=== PATIENT | female | born 2005 | race African-American/Black ===

== ENCOUNTER 2023-09-02 16:08 | Outpatient (CLI) | payer OTHER | END 2023-09-02 23:59 | disposition critical access hospital (66) | LOC: EMS 16:08 | DX: R10.31 Right lower quadrant pain (principal); R10.32 Left lower quadrant pain; R10.814 Left lower quadrant abdominal tenderness; R10.813 Right lower quadrant abdominal tenderness; R42 Dizziness and giddiness; R11.2 Nausea with vomiting, unspecified; R19.7 Diarrhea, unspecified | CPT/HCPCS: A0425; A0429 ==

== ENCOUNTER 2023-09-02 16:33 | Observation (INO) | payer OTHER ==
[2023-09-02] MEDS ORDERED: MORPHINE 2 MG/ML CARPUJECT IVP STA (17:17)
[2023-09-02] MEDS ORDERED: SODIUM CHLORIDE 0.9% 1,000 ML IV STA (17:17)
[2023-09-02] MEDS ORDERED: ONDANSETRON 4 MG/2 ML VIAL IVP STA (17:17)
[2023-09-02 17:29] LABS: BASOPHILS % (AUTO) 0.2 %; EOSINOPHILS % (AUTO) 0.2 %; HCT - HEMATOCRIT 39.9 % (37.0-47.0); HGB - HEMOGLOBIN 12.6 g/dL (12.0-16.0); LYMPHOCYTES # (AUTO) 1.2 10^3/uL (1.5-3.5); MEAN CORPUSCULAR HEMOGLOBIN 25.9 pg (27.0-31.0); MEAN CORPUSCULAR HGB CONC 31.6 g/dL (32.0-36.0); MEAN CORPUSCULAR VOLUME 81.9 fL (81.0-99.0); MEAN PLATELET VOLUME 9.4 fL (7.9-10.8); MONOCYTES # (AUTO) 0.6 10^3/uL (0.0-1.0); MONOCYTES % (AUTO) 3.9 %; NEUTROPHILS # (AUTO) 13.4 10^3/uL (1.5-6.6); NEUTROPHILS % (AUTO) 87.3 %; PLT - PLATELET COUNT 351 10^3/uL (130-450); RED BLOOD COUNT 4.87 10^6/uL (4.20-5.40); RED CELL DISTRIBUTION WIDTH 15.3 % (12.0-15.0); WHITE BLOOD COUNT 15.3 x10^3/uL (4.8-10.8)
[2023-09-02 17:41] LABS: ALBUMIN 4.4 g/dL (3.2-5.5); ALBUMIN/GLOBULIN RATIO 1.3 (1.0-2.2); CALCIUM 9.4 mg/dL (8.5-10.3); CREATININE 0.7 mg/dL (0.6-1.3); POTASSIUM 3.5 mmol/L (3.5-4.5); TOTAL PROTEIN 7.8 g/dL (6.4-8.9)
[2023-09-02 18:33] LABS: HCG,QUALITATIVE BLOOD NEGATIVE
[2023-09-02 19:35] LABS: BILIRUBIN,URINE NEGATIVE (NEGATIVE); GLUCOSE, URINE (UA) NEGATIVE (NEGATIVE); KETONES,URINE (UA) >=80 mg/dL (NEGATIVE); LEUKOCYTE ESTERASE, URINE NEGATIVE (NEGATIVE); NITRITE,URINE NEGATIVE (NEGATIVE); OCCULT BLOOD,URINE SMALL (NEGATIVE); PROTEIN,URINE NEGATIVE (NEGATIVE); UROBILINOGEN,URINE 0.2 (NORMAL) E.U./dL (NORMAL)
[2023-09-02 19:39] LABS: CLARITY,URINE CLEAR (CLEAR)
[2023-09-02] MEDS ORDERED: iohexoL-300 100 ML VIAL IVP ONE (19:39)
[2023-09-02 19:52] LABS: WBC,URINE 0-3 /HPF (0-5)
[2023-09-02 19:53] LABS: BACTERIA,URINE Rare /HPF (None Seen); SQUAMOUS EPITHELIAL CELL,UR RARE Squamous (<= Few)
[2023-09-02] MEDS ORDERED: CEFEPIME 2 GM in SODIUM CHLORIDE 0.9% MINIBAG 100 ML IV STA (19:54)
[2023-09-02] MEDS ORDERED: metroNIDAZOLE 500 MG/100 ML 500 MG/100 ML BAG IV ONE (19:54)
--- NOTE | 2023-09-02 20:01 | ED Physician Documentation ---
PD HPI ABD PAIN - Stated complaint Stated Complaint: ABD PX - Chief complaint Chief Complaint: Abd Pain - History obtained from History obtained from: Patient - History of Present Illness Timing - onset: Today, Last night Timing - duration: Days (1) Timing - details: Gradual onset Pain level max: 7 Pain level now: 7 Quality: Aching, Pain Location: Periumbilical, RLQ Radiation: No: Chest, , Lower back, Left flank, Left shoulder, Right flank, Right shoulder, Upper back Improved by: Laying still Worsened by: Moving, Palpation Associated symptoms: Nausea, Vomiting. No: Fever, Hematemesis, Diarrhea, Constipation, Hematochezia, Dysuria, Hematuria Similar symptoms before: Has not had sx before Recently seen: Not recently seen - Additional information Additional information: 18-year-old female with nausea vomiting and lower abdominal pain. This started after eating pizza last night. Has gradually worsened throughout the day. Unable to keep anything down. Denies any possibility of . Not on any medications other than Nexplanon. 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 : None HEENT: None, Dental implants Psych: None Musculoskeletal: None Derm: None - Past Surgical History Past Surgical History: No - Present Medications Home Medications: Ambulatory Orders Medication Instructions Recorded Confirmed No Known Home Medications 09/02/23 09/02/23 - Allergies Allergies/Adverse Reactions: Allergies Allergy/AdvReac Type Severity Reaction Status Date / Time Penicillins Allergy Rash Verified 09/02/23 16:47 - Social History Does the pt smoke?: No Smoking Status: Never smoker Does the pt drink ETOH?: Yes Does the pt have substance abuse?: No - Immunizations Immunizations are current?: Yes - POLST Patient has POLST: No PD ED PE NORMAL - Vitals Vital signs reviewed: Yes - General General: Alert and oriented X 3, No acute distress - HEENT HEENT: PERRL, Moist mucous membranes - Neck Neck: Supple, no meningeal sign - Cardiac Cardiac: RRR, Strong equal pulses - Respiratory Respiratory: No respiratory distress, Clear bilaterally - Abdomen Abdomen: Soft, Non distended, Other (Diffusely tender palpation across her lower abdomen,) - Back Back: No CVA TTP, No spinal TTP - Derm Derm: Warm and dry, No rash - Extremities Extremities: No edema, No calf tenderness / cord - Neuro Neuro: Alert and oriented X 3 - Psych Psych: Normal mood, Normal affect Results - Vitals Vitals: Vital Signs - 24 hr 09/02/23 09/02/23 09/02/23 16:35 19:00 20:37 Temperature 37.1 C Heart Rate 92 87 76 Respiratory 18 16 16 Rate Blood Pressure 139/71 H 130/72 127/80 O2 Saturation 100 100 100 If not protocol 2 : Oxygen Flow, liters/minute 09/02/23 21:00 Temperature Heart Rate 88 Respiratory 16 Rate Blood Pressure 118/69 O2 Saturation 100 If not protocol : Oxygen Flow, liters/minute Oxygen O2 Source Room air - Labs Labs: Laboratory Tests 09/02/23 09/02/23 09/02/23 17:21 17:21 17:21 WBC 15.3 H RBC 4.87 Hgb 12.6 Hct 39.9 MCV 81.9 MCH 25.9 L MCHC 31.6 L RDW 15.3 H Plt Count 351 MPV 9.4 Neut # (Auto) 13.4 H Lymph # (Auto) 1.2 L [place] # (Auto) 0.6 Eos # (Auto) 0.0 Baso # (Auto) 0.0 Absolute Nucleated RBC 0.00 Nucleated RBC % 0.0 Sodium 135 Potassium 3.5 Chloride 103 Carbon Dioxide 23 Anion Gap 9.0 BUN 10 Creatinine 0.7 Estimated GFR (MDRD) 129 Glucose 107 H Calcium 9.4 Total Bilirubin 1.0 AST 16 ALT 12 Alkaline Phosphatase 67 Total Protein 7.8 Albumin 4.4 Globulin 3.4 Albumin/Globulin Ratio 1.3 Lipase 17 Serum HCG, Qual NEGATIVE Urine Color Urine Clarity Urine pH Ur Specific [place] Urine Protein Urine Glucose (UA) Urine Ketones Urine Occult Blood Urine Nitrite Urine Bilirubin Urine Urobilinogen Ur Leukocyte Esterase Urine RBC Urine WBC Ur Squamous Epith Cells Urine Bacteria Ur Microscopic Review Urine Culture Comments 09/02/23 19:28 WBC RBC Hgb Hct MCV MCH MCHC RDW Plt Count MPV Neut # (Auto) Lymph # (Auto) [place] # (Auto) Eos # (Auto) Baso # (Auto) Absolute Nucleated RBC Nucleated RBC % Sodium Potassium Chloride Carbon Dioxide Anion Gap BUN Creatinine Estimated GFR (MDRD) Glucose Calcium Total Bilirubin AST ALT Alkaline Phosphatase Total Protein Albumin Globulin Albumin/Globulin Ratio Lipase Serum HCG, Qual Urine Color YELLOW Urine Clarity CLEAR Urine pH 7.0 Ur Specific [place] 1.020 Urine Protein NEGATIVE Urine Glucose (UA) NEGATIVE Urine Ketones >=80 H Urine Occult Blood SMALL H Urine Nitrite NEGATIVE Urine Bilirubin NEGATIVE Urine Urobilinogen 0.2 (NORMAL) Ur Leukocyte Esterase NEGATIVE Urine RBC 6-10 H Urine WBC 0-3 Ur Squamous Epith Cells RARE Squamous Urine Bacteria Rare Ur Microscopic Review INDICATED Urine Culture Comments NOT INDICATED - Rads (name of study) CT abdomen pelvis Relevant Findings:: Final report received, See rad report PD Medical Decision Making - ED course Complexity details: reviewed results, re-evaluated patient, considered differential, d/w patient, d/w sales consultant residential manager ED course: Patient with acute appendicitis. She was started on Flagyl and cefepime. Given morphine for pain. Started on IV fluids. Consulted surgery, Dr. Lion, he will take the patient to the operating room for removal of the appendix. This document was made in part using voice recognition software. While efforts are made to proofread this document, sound alike and grammatical errors may occur. Departure - Departure Disposition: ED Transfer to [facility] Clinical Impression: Appendicitis Qualifiers: Appendicitis type: acute appendicitis Acute appendicitis type: with localized peritonitis Appendicitis gangrene presence: unspecified whether gangrene present Appendicitis perforation presence: unspecified whether perforation present Appendicitis abscess presence: unspecified whether abscess present Qualified Code(s): K35.30 - Acute appendicitis with localized peritonitis, without perforation or gangrene Condition: Stable Discharge Date/Time: 09/02/23 21:20
--- NOTE | 2023-09-02 20:18 | CT Report ---
PROCEDURE: ABDOMEN/PELVIS W INDICATIONS: Lower CONTRAST: 100mL Omni 300 TECHNIQUE: After the administration of IV contrast, 5 mm thick sections acquired from the diaphragms to the symp hysis. 5 mm thick coronal and sagittal reformats were acquired. For radiation dose reduction, the f ollowing was used: automated exposure control, adjustment of mA and/or kV according to patient size. COMPARISON: None. FINDINGS: Image quality: Excellent. Lung bases and heart: Unremarkable. Small hiatal hernia. Liver: No solid mass. Gallbladder and biliary tree: Normal gallbladder. No gallstones. No biliary dilation. Spleen: No splenomegaly. Pancreas: No pancreatic ductal dilation. Adrenals: No adrenal nodule. Kidneys and ureters: No hydronephrosis. No renal cystic lesion which requires follow up. No solid mas s. Bowel and peritoneum: The appendix is retrocecal in location. Appendix is distended and filled with f luid measuring up to 15 mm in diameter. There is increased appendiceal mucosal enhancement and mild p eriappendiceal stranding consistent with acute appendicitis. No bowel distension. No pathologic free fluid. No colonic diverticula. Lymph nodes: There is a 1.1 cm aortocaval lymph node (series 2 image 37; series 5 image 26). Vessels: No infrarenal aortic aneurysm. PELVIS Reproductive organs: Uterus is grossly normal. Ovaries are unremarkable. There is a vlgnb-au-gohprygi amount of free fluid in the cul-de-sac demonstrates subtle enhancement suggesting developing abscess . Bladder: Bladder wall is mildly thickened with subtle stranding suggesting cystitis.. Bones: No aggressive osseous abnormality. Other: No significant ventral or inguinal hernia. IMPRESSION: 1. Acute appendicitis. No findings to suggest appendiceal perforation. There is a ezvlr-kt-sfcmmnwd a mount of free fluid in the cul-de-sac, demonstrating subtle peripheral enhancement. Cannot rule out d eveloping abscess. 2. Mild bladder wall thickening. Recommend correlation with urinalysis for cystitis. 3. There is a mildly enlarged aortocaval lymph node, most likely reactive. The result was discussed with Dr. Shirley. Reviewed by: Lisa Robb MD on 09/02/2023 8:16 PM PDT Approved by: Lisa Robb MD on 09/02/2023 8:16 PM PDT Station ID: [id number]
[2023-09-02] MEDS ORDERED: SODIUM CHLORIDE FLUSH 0.9% 10 ML SYRINGE IVP PRN ×2 (20:26→22:19)
--- NOTE | 2023-09-02 20:31 | HISTORY & PHYSICAL EXAMINATION ---
HPI - Admitted From Admitted from: ED - History Obtained From History obtained from: Patient - History of Present Illness HPI Comment/Other: 18 year old female with 24 hours of abdominal pain that started with lower abdominal cramping associated with nausea, vomiting and anorexia. Last meal was this morning. The pain did not resolve with Tylenol and Ibuprofen and moved to the RLQ. Moving and coughing makes it worse. Never had similar pain in the past. 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 Family lives off [address]. - POLST Patient has POLST: No - Family History Family History Comment/Other: Negative family history except father had acute appendicitis Meds/Allgy - Home Medications Home Medications: Ambulatory Orders Medication Instructions Recorded Confirmed No Known Home Medications 09/02/23 09/02/23 - Allergies Allergies/Adverse Reactions: Allergies Allergy/AdvReac Type Severity Reaction Status Date / Time Penicillins Allergy Rash Verified 09/02/23 16:47 Review of Systems - Other Findings Other Findings: Nausea, vomiting, anorexia, RLQ pain Exam - Vital Signs Reviewed Vital Signs: Yes Vital Signs: Vital Signs x48h Temp Pulse Resp BP Pulse Ox O2 Flow Rate 09/02/23 19:00 87 16 130/72 100 2 09/02/23 16:35 98.8 F 92 18 139/71 H 100 - Physical Exam General Appearance: positive: Alert, Mild distress Eyes Bilateral: positive: Normal inspection, PERRL ENT: positive: ENT inspection nml, Pharynx nml Neck: positive: Nml inspection, Thyroid nml Respiratory: positive: Chest non-tender, No respiratory distress, Breath sounds nml Cardiovascular: positive: Regular rate & rhythm, No murmur Peripheral Pulses: positive: 2+ Abdomen: positive: Other (RLQ tenderness without rebound. No distension.) Back: positive: Nml inspection Skin: positive: Color nml, Warm Extremities: positive: Full ROM, Nml appearance Neurologic/Psychiatric: positive: Oriented x3 Results - Lab Results Fish Bones: 09/02/23 17:21 09/02/23 17:21 Other Lab Results: Lab Results x24hrs 09/02/23 09/02/23 09/02/23 Range/Units 19:28 17:21 17:21 WBC (4.8-10.8) x10^3/uL RBC (4.20-5.40) 10^6/uL Hgb (12.0-16.0) g/dL Hct (37.0-47.0) % MCV (81.0-99.0) fL MCH (27.0-31.0) pg MCHC (32.0-36.0) g/dL RDW (12.0-15.0) % Plt Count (130-450) 10^3/uL MPV (7.9-10.8) fL Neut # (Auto) (1.5-6.6) 10^3/uL Lymph # (Auto) (1.5-3.5) 10^3/uL [place] # (Auto) (0.0-1.0) 10^3/uL Eos # (Auto) (0.0-0.7) 10^3/uL Baso # (Auto) (0.0-0.1) 10^3/uL Absolute Nucleated RBC x10^3/uL Nucleated RBC % /100WBC Sodium 135 (135-145) mmol/L Potassium 3.5 (3.5-4.5) mmol/L Chloride 103 (101-111) mmol/L Carbon Dioxide 23 (21-32) mmol/L Anion Gap 9.0 (6-13) BUN 10 (6-20) mg/dL Creatinine 0.7 (0.6-1.3) mg/dL Estimated GFR (MDRD) 129 (>89) Glucose 107 H (74-104) mg/dL Calcium 9.4 (8.5-10.3) mg/dL Total Bilirubin 1.0 (0.2-1.0) mg/dL AST 16 (10-42) IU/L ALT 12 (10-60) IU/L Alkaline Phosphatase 67 (42-121) IU/L Total Protein 7.8 (6.4-8.9) g/dL Albumin 4.4 (3.2-5.5) g/dL Globulin 3.4 (2.1-4.2) g/dL Albumin/Globulin Ratio 1.3 (1.0-2.2) Lipase 17 (11-82) U/L Serum HCG, Qual NEGATIVE Urine Color YELLOW Urine Clarity CLEAR (CLEAR) Urine pH 7.0 (5.0-7.5) PH Ur Specific [place] 1.020 (1.002-1.030) Urine Protein NEGATIVE (NEGATIVE) mg/dL Urine Glucose (UA) NEGATIVE (NEGATIVE) mg/dL Urine Ketones >=80 H (NEGATIVE) mg/dL Urine Occult Blood SMALL H (NEGATIVE) Urine Nitrite NEGATIVE (NEGATIVE) Urine Bilirubin NEGATIVE (NEGATIVE) Urine Urobilinogen 0.2 (NORMAL) (NORMAL) E.U./dL Ur Leukocyte Esterase NEGATIVE (NEGATIVE) Urine RBC 6-10 H (0-5) /HPF Urine WBC 0-3 (0-5) /HPF Ur Squamous Epith Cells RARE Squamous (<= Few) Urine Bacteria Rare (None Seen) /HPF Ur Microscopic Review INDICATED Urine Culture Comments NOT INDICATED 09/02/23 Range/Units 17:21 WBC 15.3 H (4.8-10.8) x10^3/uL RBC 4.87 (4.20-5.40) 10^6/uL Hgb 12.6 (12.0-16.0) g/dL Hct 39.9 (37.0-47.0) % MCV 81.9 (81.0-99.0) fL MCH 25.9 L (27.0-31.0) pg MCHC 31.6 L (32.0-36.0) g/dL RDW 15.3 H (12.0-15.0) % Plt Count 351 (130-450) 10^3/uL MPV 9.4 (7.9-10.8) fL Neut # (Auto) 13.4 H (1.5-6.6) 10^3/uL Lymph # (Auto) 1.2 L (1.5-3.5) 10^3/uL [place] # (Auto) 0.6 (0.0-1.0) 10^3/uL Eos # (Auto) 0.0 (0.0-0.7) 10^3/uL Baso # (Auto) 0.0 (0.0-0.1) 10^3/uL Absolute Nucleated RBC 0.00 x10^3/uL Nucleated RBC % 0.0 /100WBC Sodium (135-145) mmol/L Potassium (3.5-4.5) mmol/L Chloride (101-111) mmol/L Carbon Dioxide (21-32) mmol/L Anion Gap (6-13) BUN (6-20) mg/dL Creatinine (0.6-1.3) mg/dL Estimated GFR (MDRD) (>89) Glucose (74-104) mg/dL Calcium (8.5-10.3) mg/dL Total Bilirubin (0.2-1.0) mg/dL AST (10-42) IU/L ALT (10-60) IU/L Alkaline Phosphatase (42-121) IU/L Total Protein (6.4-8.9) g/dL Albumin (3.2-5.5) g/dL Globulin (2.1-4.2) g/dL Albumin/Globulin Ratio (1.0-2.2) Lipase (11-82) U/L Serum HCG, Qual Urine Color Urine Clarity (CLEAR) Urine pH (5.0-7.5) PH Ur Specific [place] (1.002-1.030) Urine Protein (NEGATIVE) mg/dL Urine Glucose (UA) (NEGATIVE) mg/dL Urine Ketones (NEGATIVE) mg/dL Urine Occult Blood (NEGATIVE) Urine Nitrite (NEGATIVE) Urine Bilirubin (NEGATIVE) Urine Urobilinogen (NORMAL) E.U./dL Ur Leukocyte Esterase (NEGATIVE) Urine RBC (0-5) /HPF Urine WBC (0-5) /HPF Ur Squamous Epith Cells (<= Few) Urine Bacteria (None Seen) /HPF Ur Microscopic Review Urine Culture Comments - Diagnostic Imaging Results Diagnostic Imaging Results Comments: CT -> distended, appendix without evidence of perforation Impression/Plan - Problem List Problem List: Assessment: 1) Acute appendicitis Plan: 1) Laparoscopic appendectomy, possible open appendectomy Consent: Scottyelizabeth has been counseled for the procedure, it's indications, risks, benefits and expected outcome as well as alternative therapies. We specifically discussed risks associated with anesthesia, bleeding, infection, injury to surrounding structures which may require additional surgery, and the possible need for conversion to an open procedure. We also discussed the possible need for a blood transfusion with its risks and benefits. Rajendra understands, agrees, and consents to the proposed operative strategy and requests that we proceed with the procedure as outlined in our discussion. Carlitos Lion MD General Surgery Service
[2023-09-02] MEDS: LACTATED RINGERS 1,000 ML IV SCH (20:43)
[2023-09-02] MEDS ORDERED: ROCURONIUM 50 MG/5 ML VIAL ONE (20:49)
[2023-09-02] MEDS ORDERED: PROPOFOL 200 MG/20 ML VIAL IVP ONE (20:49)
[2023-09-02] MEDS ORDERED: MIDAZOLAM 2 MG/2 ML VIAL ONE (20:49)
[2023-09-02] MEDS ORDERED: fentaNYL 100 MCG/2 ML VIAL ONE ×2 (20:50→22:18)
--- NOTE | 2023-09-02 20:52 | ANESTHESIA ---
Pre-Anesthesia VS, & Labs - Diagnosis Acute appendicitis - Procedure Lap Appy Vital Signs: Temp Pulse Resp BP Pulse Ox O2 Flow Rate 37.1 C 76 16 127/80 100 2 09/02/23 16:35 09/02/23 20:37 09/02/23 20:37 09/02/23 20:37 09/02/23 20:37 09/02/23 19:00 Height: 5 ft 3 in Weight (kg): 85.4 kg Body Mass Index: 33.3 BMI Classification: Obese - NPO Last Food Intake: 11 am - Is Patient ?: No - Lab Results Current Lab Results: Laboratory Tests 09/02/23 17:21: Serum HCG, Qual NEGATIVE 09/02/23 17:21: Sodium 135, Potassium 3.5, Chloride 103, Carbon Dioxide 23, Anion Gap 9.0, BUN 10, Creatinine 0.7, Estimated GFR (MDRD) 129, Glucose 107 H, Calcium 9.4, Total Bilirubin 1.0, AST 16, ALT 12, Alkaline Phosphatase 67, Total Protein 7.8, Albumin 4.4, Globulin 3.4, Albumin/Globulin Ratio 1.3, Lipase 17 09/02/23 17:21: WBC 15.3 H, RBC 4.87, Hgb 12.6, Hct 39.9, MCV 81.9, MCH 25.9 L, MCHC 31.6 L, RDW 15.3 H, Plt Count 351, MPV 9.4, Neut # (Auto) 13.4 H, Lymph # (Auto) 1.2 L, [place] # (Auto) 0.6, Eos # (Auto) 0.0, Baso # (Auto) 0.0, Absolute Nucleated RBC 0.00, Nucleated RBC % 0.0 Lab results reviewed: Yes Fish Bones: 09/02/23 17:21 09/02/23 17:21 Home Medications and Allergies Home Medications: Ambulatory Orders No Known Home Medications 09/02/23 Active Medications Metronidazole (Flagyl 500 Mg/100 Ml) 500 mg in 100 mls @ 100 mls/hr IV ONCE ONE Stop: 09/02/23 20:53 Lactated Ringer's (Lr) 1,000 mls @ 125 mls/hr IV .Q8H FERMIN Last Admin: 09/02/23 20:43 Dose: 125 mls/hr Sodium Chloride (Sodium Chloride Flush 0.9% 10 Ml Syringe) 10 ml IVP 0100,0900,1700 FERMIN Sodium Chloride (Sodium Chloride Flush 0.9% 10 Ml Syringe) 10 ml IVP PRN PRN PRN Reason: NEEDED PER PROVIDER ORDERS No Known Home Medications 09/02/23 Allergies/Adverse Reactions: Allergies Allergy/AdvReac Type Severity Reaction Status Date / Time Penicillins Allergy Rash Verified 09/02/23 16:47 Anes History & Medical History - Anesthetic History Family history of Anesthesia Complications: Denies Family history of Malignant Hyperthermia: Denies - Medical History Cardiovascular: reports: None Pulmonary: reports: None Gastrointestinal: reports: GERD (occasional r/t diet) Urinary: reports: None Neuro: reports: None Musculoskeletal: reports: None Endocrine/Autoimmune: reports: None Blood Disorders: reports: None Skin: reports: None Smoking Status: Never smoker Psychosocial: reports: No issues indicated History of Cancer?: No Exam General: Alert, Oriented x3, Cooperative, No acute distress Dental: WNL Mouth Openin Fingerbreadth Neck Mobility: Normal Mallampati classification: II Thyromental Distance: 4-6 cm Mental/Cognitive Status: Alert/Oriented X3, Normal for patient Plan Anesthesia Type: General Consent for Procedure(s) Verified and Reviewed: Yes Code Status: Attempt Resuscitation ASA classification: 1-Healthy patient Is this case an emergency?: Yes
[2023-09-02] MEDS ORDERED: ATROPINE ABBOJECT 1 MG/10 ML SYRINGE IVP PRN (20:53)
[2023-09-02] MEDS ORDERED: fentaNYL 100 MCG/2 ML VIAL IVP PRN (20:53)
[2023-09-02] MEDS ORDERED: ONDANSETRON 4 MG/2 ML VIAL IVP PRN ×2 (20:53→22:19)
[2023-09-02] MEDS ORDERED: MORPHINE 2 MG/ML CARPUJECT IVP PRN (20:53)
[2023-09-02] MEDS ORDERED: NALOXONE 0.4 MG/ML VIAL IVP PRN (20:53)
[2023-09-02] MEDS ORDERED: HYDROmorphone 0.5 MG/0.5 ML SYRINGE IVP PRN (20:53)
[2023-09-02] MEDS ORDERED: LACTATED RINGERS 1,000 ML IV SCH (21:00)
[2023-09-02] MEDS ORDERED: BUPIVACAINE 0.25% PF 30 ML VIAL ONE (21:17)
[2023-09-02] MEDS ORDERED: LIDOCAINE 1%-EPI 1:100000 20 ML MDV ONE (21:17)
[2023-09-02] MEDS ORDERED: DEXAMETHASONE 4 MG/ML VIAL ONE (21:40)
[2023-09-02] MEDS ORDERED: HYDROmorphone 1 MG/ML CARPUJECT ONE (21:41)
[2023-09-02] MEDS ORDERED: LIDOCAINE 1%-EPI 1:100000 20 ML MDV SUBQ ONE (21:54)
[2023-09-02] MEDS ORDERED: BUPIVACAINE 0.25% PF 30 ML VIAL SUBQ ONE (21:54)
[2023-09-02] MEDS ORDERED: ONDANSETRON 4 MG/2 ML VIAL ONE (22:12)
[2023-09-02] MEDS ORDERED: SUGAMMADEX 200 MG/2 ML VIAL IVP ONE (22:15)
[2023-09-02] MEDS ORDERED: oxyCODONE 5 MG TABLET PO PRN (22:19)
[2023-09-02] MEDS ORDERED: KETOROLAC 30 MG/ML VIAL ONE (22:21)
[2023-09-02] MEDS ORDERED: LACTATED RINGERS 700 ML IV ONE (22:23)
--- NOTE | 2023-09-02 22:30 | OPERATIVE REPORT ---
Operative Report - Other Other Information/Narrative: PROCEDURE DATE: 09/02/23 PREOPERATIVE DIAGNOSIS: Rajendra is a 18 year old female who has clinical, CT, and laboratory findings consistent with acute appendicitis. Rajendra is being taken to the operating room for laparoscopic appendectomy, possible open appendectomy. POSTOPERATIVE DIAGNOSIS: Acute, non-ruptured appendicitis NAME OF PROCEDURE: Laparoscopic appendectomy SURGEON: Raymundo Lion MD, FACS DEPLOYMENT SPECIALIST: Wind Turbine Performance Engineer ANESTHESIA: General endotracheal. ESTIMATED BLOOD LOSS: 5 mL. DRAINS: None SPECIMEN: Appendix COMPLICATIONS None FINDINGS: An intact, inflamed appendix DESCRIPTION OF OPERATION: After consent for the procedure was obtained, the patient was brought to the operating room where in the supine position, general endotracheal anesthesia was administered. A surgical time-out was performed, indicating the patient and the procedure to be performed. The abdomen was prepped with alcohol-free chloroprep and draped in a sterile fashion. The subcutaneous tissue of each of the planned port sites was infiltrated with 1% Lidocaine with epinephrine in a 50/50 mix with 1/4 % Marcaine mixture. Pneumoperitoneum was achieved through a subumbilical incision using a Trinity cannula and an open technique. Under direct vision, a 5 mm muscle splitting, non-cutting port was placed in the right lower quadrant and an 12 mm muscle splitting, non-cutting port was placed in the left lower quadrant. Inspection revealed the above noted findings. Placing the patient in Trendelenburg position slightly rolled to the left allowed visualization of the appendix. The appendix was gently grasped with a ratcheted grasper and retracted superiorly and anteriorly. The meso-appendix was transected with a harmonic scalpel until healthy tissue was identified at the base of the appendix. The base of the appendix was stapled and transected flush with the cecum using an Endo-RHYS stapling device using gastrointestinal frantz. The appendix was then brought out through the left lower quadrant port site incision using an EndoCatch device. Reinspection of the right lower quadrant revealed no evidence of bleeding or leakage from the previous dissection site except for a small mesoappendiceal bleeder adjacent to the staple line that was controlled with the harmonic scalpel. The right lower quadrant was irrigated with warm sterile saline. The irrigant was aspirated. A search was made for sponges, packs, instruments, and needles. None were found. The sponge, pack, instrument, and needle counts were relayed to me as being correct. The left lower quadrant port site was closed with a 2-0 Vicryl under direct vision using an endo-close device. The pneumoperitoneum then was released. There was no evidence of bleeding from the laparoscopic port sleeve sites upon release of the pneumoperitoneum. The subumbilical incision was closed with 2-0 Vicryl for the linea alba. The skin of each of the port sites was closed with interrupted 4-0 Monocryl in a subcuticular fashion with Steri-Strips to reinforce the epidermis. Dressings were placed. The patient tolerated the procedure well and was brought to the recovery room with stable vital signs.
--- NOTE | 2023-09-02 22:51 | ANESTHESIA POST OP EVALUATION ---
Anesthesia Post Eval - Post Anesthesia Eval Vitals: Last Vital Signs Temp 36.1 C L 09/02/23 22:45 Pulse 90 09/02/23 22:45 Resp 22 09/02/23 22:45 BP 115/68 09/02/23 22:45 Pulse Ox 100 09/02/23 22:45 O2 Flow Rate 2 09/02/23 19:00 CV Function Including HR & BP: Stable Pain Control: Satisfactory Nausea & Vomiting: Negative Mental Status: Baseline Respiratory Status: Airway Patent Hydration Status: Satisfactory Anesthesia Complications: None
[2023-09-02] MEDS: KETOROLAC 30 MG/ML VIAL IVP SCH (23:42)
[2023-09-02] MEDS: SODIUM CHLORIDE FLUSH 0.9% 10 ML SYRINGE IVP SCH (23:43)
[2023-09-02] MEDS: ACETAMINOPHEN 325 MG TABLET PO SCH (23:43)
[2023-09-03] MEDS: SODIUM CHLORIDE FLUSH 0.9% 10 ML SYRINGE IVP SCH ×3 (00:33→09:29)
[2023-09-03 00:54] VITALS: O2SAT 100
[2023-09-03] MEDS: LACTATED RINGERS 1,000 ML IV SCH ×2 (04:13→12:05)
[2023-09-03] MEDS: ACETAMINOPHEN 325 MG TABLET PO SCH ×2 (05:37→11:32)
[2023-09-03] MEDS: KETOROLAC 30 MG/ML VIAL IVP SCH ×2 (05:37→11:31)
[2023-09-03 05:39] LABS: BASOPHILS % (AUTO) 0.2 %; HCT - HEMATOCRIT 38.3 % (37.0-47.0); LYMPHOCYTES # (AUTO) 1.1 10^3/uL (1.5-3.5); LYMPHOCYTES % (AUTO) 6.3 %; MEAN CORPUSCULAR HEMOGLOBIN 25.9 pg (27.0-31.0); MEAN CORPUSCULAR HGB CONC 31.3 g/dL (32.0-36.0); MEAN CORPUSCULAR VOLUME 82.7 fL (81.0-99.0); MEAN PLATELET VOLUME 9.4 fL (7.9-10.8); MONOCYTES # (AUTO) 0.5 10^3/uL (0.0-1.0); MONOCYTES % (AUTO) 2.7 %; NEUTROPHILS # (AUTO) 15.1 10^3/uL (1.5-6.6); NEUTROPHILS % (AUTO) 90.4 %; PLT - PLATELET COUNT 343 10^3/uL (130-450); RED BLOOD COUNT 4.63 10^6/uL (4.20-5.40); RED CELL DISTRIBUTION WIDTH 15.5 % (12.0-15.0); WHITE BLOOD COUNT 16.7 x10^3/uL (4.8-10.8)
--- NOTE | 2023-09-03 06:56 | PROVIDER PROGRESS NOTE ---
Subjective - General Admit Date: 09/02/23 Procedure Date: 09/02/23 Post Op Days: 1 Procedure Performed: Laparoscopic appendectomy - Review of Systems Wound/Incisions: positive: Healing well, Dressing dry and intact - Other Other Information/Narrative: Pain under good control with oral medication; Ambulated and urinated without difficulty; No nausea or vomiting Objective - Patient Data Vital Signs: Vital Signs x48h Temp Pulse Pulse Resp BP BP Pulse Ox 09/03/23 06:47 98.6 F 73 16 103/54 L 100 09/03/23 02:42 97.5 F L 75 16 112/67 100 09/03/23 00:47 97.9 F 81 15 109/60 100 09/02/23 23:10 09/02/23 23:00 98.1 F 99 16 102/86 H 96 09/02/23 22:57 96.8 F L 99 21 110/74 100 O2 Flow Rate 09/03/23 06:47 09/03/23 02:42 09/03/23 00:47 09/02/23 23:10 2 09/02/23 23:00 09/02/23 22:57 Weight: Weight 09/01/23 09/02/23 09/03/23 23:59 23:59 23:59 Weight (kg) 79.5 kg Intake & Output: Intake and Output Totals x24h 09/01/23 09/02/23 09/03/23 23:59 23:59 23:59 Intake Total 1100 937.5 Balance 1100 937.5 - Lab Results Lab Results: 09/03/23 05:26 09/02/23 17:21 Other Lab Results: Lab Results x24hrs 09/03/23 09/03/23 09/02/23 Range/Units 05:26 05:26 19:28 WBC 16.7 H (4.8-10.8) x10^3/uL RBC 4.63 (4.20-5.40) 10^6/uL Hgb 12.0 (12.0-16.0) g/dL Hct 38.3 (37.0-47.0) % MCV 82.7 (81.0-99.0) fL MCH 25.9 L (27.0-31.0) pg MCHC 31.3 L (32.0-36.0) g/dL RDW 15.5 H (12.0-15.0) % Plt Count 343 (130-450) 10^3/uL MPV 9.4 (7.9-10.8) fL Neut # (Auto) 15.1 H (1.5-6.6) 10^3/uL Lymph # (Auto) 1.1 L (1.5-3.5) 10^3/uL Sampson # (Auto) 0.5 (0.0-1.0) 10^3/uL Eos # (Auto) 0.0 (0.0-0.7) 10^3/uL Baso # (Auto) 0.0 (0.0-0.1) 10^3/uL Absolute Nucleated RBC 0.00 x10^3/uL Nucleated RBC % 0.0 /100WBC Sodium (135-145) mmol/L Potassium (3.5-4.5) mmol/L Chloride (101-111) mmol/L Carbon Dioxide (21-32) mmol/L Anion Gap (6-13) BUN (6-20) mg/dL Creatinine (0.6-1.3) mg/dL Estimated GFR (MDRD) (>89) Glucose (74-104) mg/dL Calcium (8.5-10.3) mg/dL Total Bilirubin (0.2-1.0) mg/dL AST (10-42) IU/L ALT (10-60) IU/L Alkaline Phosphatase (42-121) IU/L Total Protein (6.4-8.9) g/dL Albumin (3.2-5.5) g/dL Globulin (2.1-4.2) g/dL Albumin/Globulin Ratio (1.0-2.2) Amylase 40 (28-100) U/L Lipase (11-82) U/L Serum HCG, Qual Urine Color YELLOW Urine Clarity CLEAR (CLEAR) Urine pH 7.0 (5.0-7.5) PH Ur Specific [place] 1.020 (1.002-1.030) Urine Protein NEGATIVE (NEGATIVE) mg/dL Urine Glucose (UA) NEGATIVE (NEGATIVE) mg/dL Urine Ketones >=80 H (NEGATIVE) mg/dL Urine Occult Blood SMALL H (NEGATIVE) Urine Nitrite NEGATIVE (NEGATIVE) Urine Bilirubin NEGATIVE (NEGATIVE) Urine Urobilinogen 0.2 (NORMAL) (NORMAL) E.U./dL Ur Leukocyte Esterase NEGATIVE (NEGATIVE) Urine RBC 6-10 H (0-5) /HPF Urine WBC 0-3 (0-5) /HPF Ur Squamous Epith Cells RARE Squamous (<= Few) Urine Bacteria Rare (None Seen) /HPF Ur Microscopic Review INDICATED Urine Culture Comments NOT INDICATED 09/02/23 09/02/23 09/02/23 Range/Units 17:21 17:21 17:21 WBC 15.3 H (4.8-10.8) x10^3/uL RBC 4.87 (4.20-5.40) 10^6/uL Hgb 12.6 (12.0-16.0) g/dL Hct 39.9 (37.0-47.0) % MCV 81.9 (81.0-99.0) fL MCH 25.9 L (27.0-31.0) pg MCHC 31.6 L (32.0-36.0) g/dL RDW 15.3 H (12.0-15.0) % Plt Count 351 (130-450) 10^3/uL MPV 9.4 (7.9-10.8) fL Neut # (Auto) 13.4 H (1.5-6.6) 10^3/uL Lymph # (Auto) 1.2 L (1.5-3.5) 10^3/uL Sampson # (Auto) 0.6 (0.0-1.0) 10^3/uL Eos # (Auto) 0.0 (0.0-0.7) 10^3/uL Baso # (Auto) 0.0 (0.0-0.1) 10^3/uL Absolute Nucleated RBC 0.00 x10^3/uL Nucleated RBC % 0.0 /100WBC Sodium 135 (135-145) mmol/L Potassium 3.5 (3.5-4.5) mmol/L Chloride 103 (101-111) mmol/L Carbon Dioxide 23 (21-32) mmol/L Anion Gap 9.0 (6-13) BUN 10 (6-20) mg/dL Creatinine 0.7 (0.6-1.3) mg/dL Estimated GFR (MDRD) 129 (>89) Glucose 107 H (74-104) mg/dL Calcium 9.4 (8.5-10.3) mg/dL Total Bilirubin 1.0 (0.2-1.0) mg/dL AST 16 (10-42) IU/L ALT 12 (10-60) IU/L Alkaline Phosphatase 67 (42-121) IU/L Total Protein 7.8 (6.4-8.9) g/dL Albumin 4.4 (3.2-5.5) g/dL Globulin 3.4 (2.1-4.2) g/dL Albumin/Globulin Ratio 1.3 (1.0-2.2) Amylase (28-100) U/L Lipase 17 (11-82) U/L Serum HCG, Qual NEGATIVE Urine Color Urine Clarity (CLEAR) Urine pH (5.0-7.5) PH Ur Specific [place] (1.002-1.030) Urine Protein (NEGATIVE) mg/dL Urine Glucose (UA) (NEGATIVE) mg/dL Urine Ketones (NEGATIVE) mg/dL Urine Occult Blood (NEGATIVE) Urine Nitrite (NEGATIVE) Urine Bilirubin (NEGATIVE) Urine Urobilinogen (NORMAL) E.U./dL Ur Leukocyte Esterase (NEGATIVE) Urine RBC (0-5) /HPF Urine WBC (0-5) /HPF Ur Squamous Epith Cells (<= Few) Urine Bacteria (None Seen) /HPF Ur Microscopic Review Urine Culture Comments - Current Medications Current Medications: Current Medications Generic Name Dose Route Start Last Admin Trade Name Alpeshq PRN Reason Stop Dose Admin Acetaminophen 650 mg 09/03/23 00:00 09/03/23 05:37 Acetaminophen 325 Mg Tablet PO 650 mg Q6HR FERMIN Administration Lactated Ringer's 1,000 mls @ 125 mls/hr 09/02/23 21:00 09/03/23 04:13 Lr IV 125 mls/hr .Q8H FERMIN Administration Ketorolac Tromethamine 30 mg 09/02/23 23:00 09/03/23 05:37 Ketorolac 30 Mg/Ml Vial IVP 09/03/23 23:01 30 mg Q6H FERMIN Administration Sodium Chloride 10 ml 09/03/23 01:00 09/02/23 23:43 Sodium Chloride Flush 0.9% 10 Ml Syringe IVP 10 ml 0100,0900,1700 FERMIN Administration Sodium Chloride 10 ml 09/03/23 01:00 09/03/23 00:33 Sodium Chloride Flush 0.9% 10 Ml Syringe IVP Not Given 0100,0900,1700 FERMIN - Physical Exam Wound/Incisions: positive: Healing well, Dressing dry and intact General Appearance: positive: No acute distress, Alert Eyes Bilateral: positive: PERRL ENT: positive: Pharynx nml Neck: positive: Nml inspection Respiratory: positive: No respiratory distress, Breath sounds nml Cardiovascular: positive: Regular rate & rhythm Abdomen: positive: Non-tender, Nml bowel sounds, No distention Skin: positive: Color nml, Warm Extremities: positive: Full ROM Impression/Plan - Problem List Problem List: Assessment: Acute appendicitis, s/p laparoscopic appendectomy. Progressing well. Persistent leukocytosis this soon after surgery not unexpected Plan: General diet. IV to SL if tolerating PO well; Ambulate; Anticipate discharge to home later this morning. Carlitos Lion MD General Surgery Service
[2023-09-03] MEDS ORDERED: HEPARIN 5,000 UNIT/ML VIAL SUBQ SCH (09:00)
[2023-09-03 12:24] VITALS: BP 108/56
--- NOTE | 2023-09-03 12:47 | PROVIDER PROGRESS NOTE ---
Progress Note General Surgery Progress Note Tolerated breakfast and lunch but feels a bit bloated. Abdomen is softer but with gaseous distension. No tenderness. Post sites clean. Encouraged ambulation; Dulcolax suppository now; Possible DC later this afternoon. Carlitos Lion MD General Surgery Service
[2023-09-03] MEDS ORDERED: BISACODYL 10 MG SUPP PR ONE (13:00)
--- NOTE | 2023-09-03 13:15 | PHARMACY PROGRESS NOTE ---
- Best Possible Medication History Admit Date and Time: 09/02/232025 Processed by: Pharmacy Medication History completed: Yes Patient Interview: Completed As the person ultimately responsible for medication therapy, providers are able to order a medication from an existing home medication list in [facility] via the "Reconcile Routine" prior to Confirmation of that medication by marketing support coordinator. Such practice is discouraged except when the physician, in their clinical twan gment, deems that a medical need exists for a medication without regard to previous use.
--- NOTE | 2023-09-03 13:57 | DISCHARGE SUMMARY ---
"Discharge Summary Admit Date: 09/02/23 Discharge Date: 09/03/23 Discharging Provider: Amisha Code Status: Attempt Resuscitation Condition at Discharge: Good Discharge Disposition: 01 Home, Self Care - DIAGNOSES Admission Diagnoses: Acute appendicitis Discharge Diagnoses with Status of Each Condition: Acute appendicitis - resolved with laparoscopic appendectomy - HPI History of Present Illness: 18 year old female with 24 hours of abdominal pain that started with lower abdominal cramping associated with nausea, vomiting and anorexia. Last meal was this morning. The pain did not resolve with Tylenol and Ibuprofen and moved to the RLQ. Moving and coughing makes it worse. Never had similar pain in the pa [facility]. - CONSULTS | PROCEDURES Procedures: 09/02/23 - Laparoscopic appendectomy - HOSPITAL COURSE Hospital Course: Uncomplicated. At time of discharge, she was ambulatory, tolerating a general diet, and her pain was under control with oral non-narcotic analgesics. Her port sites were healing without bleeding or infection - ALLERGIES Allergies/Adverse Reactions: Allergies Allergy/AdvReac Type Severity Reaction Status Date / Time Penicillins Allergy Rash Verified 09/02/23 16:47 - MEDICATIONS Home Medications: Ambulatory Orders Medication Instructions Recorded Confirmed No Known Home Medications 09/02/23 09/02/23 - PHYSICAL EXAM AT DISCHARGE General Appearance: positive: No acute distress, Alert Eyes Bilateral: positive: PERRL ENT: positive: Pharynx nml Neck: positive: Nml inspection Respiratory: positive: No respiratory distress, Breath sounds nml Cardiovascular: positive: Regular rate & rhythm Peripheral Pulses: positive: 2+ Abdomen: positive: Non-tender, No distention, Other (Port sites clean and dry) Skin: positive: Color nml, Warm Extremities: positive: Non-tender, Full ROM - LABS Result Diagrams: 09/03/23 05:26 09/02/23 17:21 - DIAGNOSTIC IMAGING Diagnostic Imaging Results: See rad report - QUALITY (Female Hip Fx Only) Was patient sent home on osteoporosis medication?: No - FOLLOW UP Follow Up: Follow-up [facility] in 7-10 days - TIME SPENT Time Spent in Discharge (Minutes): 45"
--- NOTE | 2023-09-03 14:01 | Discharge Plan ---
Discharge Plan Problem Reviewed?: Yes Disposition: Home, Self Care Condition: Good Diet: Regular Activity Restrictions: Additional Comments (Be active but if it hurts to do, don't do it) Shower Restrictions: Yes (Begin tomorrow) Weight Bearing: Full Weight Instruction Topics: Appendectomy Laparoscopic Dc Plan of Treatment: Recuperte this week; [facility] clinic in 7-10 days; RTD per medical team Additional Instructions or Follow Up instructions: Contact the clinic or hospital emergency department if your wounds become hot, swollen, red or begin to drain. No Smoking: If you smoke, Please STOP! Call for help.
== END 2023-09-03 15:41 | disposition home or self-care (01) ==
LOC: ED 16:33 → SDS 20:00 → MS2 20:26
PROVIDERS: ADMIT Surgery; ATTEND Surgery
PROC: 0DTJ4ZZ Resection of Appendix, Percutaneous Endoscopic Approach (ICD-10-PCS; principal; 2023-09-02 21:00)
DX: K35.30 Acute appendicitis with localized peritonitis, without perforation or gangrene (principal); E66.9 Obesity, unspecified; Z68.33 Body mass index [BMI] 33.0-33.9, adult
CPT/HCPCS: 36415; 44970; 74177; 80053; 81001; 82150; 83690; 84703; 85025; 96365; 96375; 99284; 99285; A9270; J1170; J7120; Q9967; 81003; 87086